=== PATIENT | female | born 1975 | race African-American/Black ===

== ENCOUNTER 2023-01-10 06:55 | Day surgery (SDC) | payer OTHER ==
[~2023-01-10] VITALS: Ht 160 cm; Wt 72.6 kg
[2023-01-10] MEDS ORDERED: LIDOCAINE 1% 500 MG/50 ML VIAL ONE (07:20)
[2023-01-10] MEDS ORDERED: LIDOCAINE 2% 100 MG/5 ML UJET TP ONE (07:46)
[2023-01-10] MEDS ORDERED: BUPIVACAINE-MPF/EPI 0.25% 10 ML VIAL INJ ONE ×2 (07:46→08:24)
[2023-01-10] MEDS ORDERED: fentaNYL citrate 0.05 MG/ML VIAL ONE ×2 (08:54→09:29)
[2023-01-10] MEDS ORDERED: DEXAMETHASONE 4 MG/ML VIAL ONE (09:00)
[2023-01-10] MEDS ORDERED: ROCURONIUM 50 MG/5 ML VIAL IV ONE (09:00)
[2023-01-10] MEDS ORDERED: fentaNYL citrate 0.05 MG/ML - 50mL vial IV ONE (09:00)
[2023-01-10] MEDS ORDERED: KETOROLAC 30 MG/ML VIAL ONE (09:00)
[2023-01-10] MEDS ORDERED: PROPOFOL 200 MG/20 ML VIAL IV ONE (09:00)
[2023-01-10] MEDS ORDERED: SUGAMMADEX SODIUM 200 MG/2 ML VIAL IV ONE ×2 (09:00→09:30)
[2023-01-10] MEDS ORDERED: ONDANSETRON 4 MG/2 ML VIAL ONE (09:00)
== END 2023-01-10 11:37 | disposition home or self-care (01) ==
LOC: MMU 06:55 → MDS 06:55
PROVIDERS: ATTEND Surgery
DX: Z12.11 Encounter for screening for malignant neoplasm of colon (principal); K64.9 Unspecified hemorrhoids; Z20.822 Contact with and (suspected) exposure to COVID-19; Z79.899 Other long term (current) drug therapy
CPT/HCPCS: 45378; 46260; 71045; 87426; 93005; J1100; J1885; J2001; J2405; J2704; J3010; J3490; J7120